=== PATIENT | male | born 2000 | race Caucasian/White ===

== ENCOUNTER 2025-05-08 20:37 | Emergency (ER) | payer OTHER ==
[2025-05-08 20:47] VITALS: PULSE 120; O2SAT 100
== END 2025-05-08 21:43 | disposition left against medical advice (07) ==
LOC: ER 20:37
DX: F41.9 Anxiety disorder, unspecified (principal); Z53.21 Procedure and treatment not carried out due to patient leaving prior to being seen by health care provider